=== PATIENT | male | born 1995 | race African-American/Black ===

== ENCOUNTER 2020-09-20 06:27 | Emergency (ER) | payer SELFPAY ==
[~2020-09-20] VITALS: Ht 172.7 cm; Wt 72.6 kg
[2020-09-20 06:27] VITALS: BP 99/57
[2020-09-20] MEDS ORDERED: IBUPROFEN 600 MG TABLET PO ONE (07:00)
== END 2020-09-20 06:37 | disposition home or self-care (01) ==
LOC: ER 06:29
DX: M54.5 Low back pain (principal)